=== PATIENT | male | born 1940 | race Caucasian/White ===

== ENCOUNTER 2016-11-10 03:40 | Emergency (ER) | payer OTHER, MEDICARE ==
--- NOTE | 2016-11-10 04:03 | EDM.PDOC ---
ED HPI GENERAL MEDICAL PROBLEM - General Stated Complaint: [facility] Time Seen by Provider: 11/10/16 03:58 Source of Information: Reports: EMS, Family (, son), RN Notes Reviewed History Limitations: Reports: Other (Unresponsive) - History of Present Illness INITIAL COMMENTS - FREE TEXT/NARRATIVE: The patient and his family are visiting from [place]. According to the patient's and EMS, the patient complained of a headache all day yesterday, 11/09/2016, but was doing well by the time he went to bed at 23 :30. The states that she woke to the sound of the patient falling onto the floor, face down. She states that he was not breathing. The patient's son started chest compressions, and EMS was called. The police arrived first, and they believed that he had a pulse, therefore chest compressions were stopped. When EMS arrived, they found the patient have a blood pressure 146/110 with a respiratory rate of 6. SpO2 was in the 90's. Blood glucose was 164. They assisted his breathing en route. Upon arrival to the ED, the patient remained hemodynamically stable, but unresponsive, even to noxious stimuli. The patient was therefore intubated for airway protection, following a propofol 40 mg IVP x 1. The patient's states that the patient had an intracranial hemorrhage approximately 2010, requiring craniotomy. At the time, the patient was on Coumadin. This was discontinued, and he has not been on an anticoagulant since. The patient also has a history of CAD with an ME approximately 2008, receiving 2 coronary stents. The patient developed paroxysmal atrial fibrillation following his ME. The patient has had a seizure disorder since 1986, for which he takes Keppra twice a day. He has not missed any doses recently. - Related Data Allergies Allergy/AdvReac Type Severity Reaction Status Date / Time Unable to Assess Allergy Unverified 11/10/16 05:32 Past Medical History Cardiovascular History: Reports: Afib (paroxysmal), CAD, High Cholesterol, Hypertension, ME (around 2008) Respiratory History: Reports: COPD (on 2L O2 continuously) Neurological History: Reports: Seizure (since approximately 1986), Other (See Below) (Intracranial hemorrhage approx 2010) Psychiatric History: Reports: Anxiety, Depression, PTSD Endocrine/Metabolic History: Reports: Hypothyroidism - Past Surgical History HEENT Surgical History: Reports: Cataract Surgery, Tonsillectomy Cardiovascular Surgical History: Reports: Coronary Artery Stent (x 2) Neurological Surgical History: Reports: Other (See Below) (Craniotomy for intracranial hemorrhage approximately 2010) Social & Family History - Tobacco Use Smoking Status *Q: Former Smoker Years of Tobacco use: 24 Packs/Tins Daily: 1.5 Month Tobacco Last Used: Quit 1982 - Alcohol Use Alcohol Use History: No - Recreational Drug Use Recreational Drug Use: No - Living Situation & Occupation Living situation: Reports: , with Spouse Occupation: Retired ED ROS GENERAL - Review of Systems Review Of Systems: See Below Constitutional: Reports: No Symptoms HEENT: Reports: No Symptoms Respiratory: Reports: No Symptoms Cardiovascular: Reports: No Symptoms Endocrine: Reports: No Symptoms GI/Abdominal: Reports: No Symptoms : Reports: No Symptoms Musculoskeletal: Reports: No Symptoms Skin: Reports: No Symptoms Neurological: Reports: Headache (11/09/16) Psychiatric: Reports: No Symptoms Hematologic/Lymphatic: Reports: No Symptoms Immunologic: Reports: No Symptoms - Physical Exam Exam: See Below Exam Limited By: Other (Unresponsive) General Appearance: WD/WN Eye Exam: Bilateral Eye: Normal Inspection Ears: Normal External Exam Nose: Normal Inspection, No Blood Throat/Mouth: Normal Inspection, Normal Lips Head Exam: Atraumatic, Normocephalic Neck: Normal Inspection, Full Range of Motion Respiratory/Chest: No Respiratory Distress, Lungs Clear, No Accessory Muscle Use , Decreased Breath Sounds. No: Crackles, Rhonchi, Wheezing Cardiovascular: Normal Peripheral Pulses, No Edema, No Gallop, No JVD, No Murmur , No Rub, Irregularly Irregular GI/Abdominal: Normal Bowel Sounds, Soft, No Organomegaly, No Distention, No Abnormal Bruit, No Mass (Male) Exam: Deferred Rectal (Males) Exam: Deferred Neuro Exam (Abbreviated): Other (Unresponsive to noxious stimuli) Extremities: Normal Inspection, Normal Range of Motion, No Pedal Edema, Normal Capillary Refill Skin Exam: Warm, Dry, Intact, Normal Color, No Rash Endotracheal Intubation - Endotracheal Intubation Time of Intubation: 03:54 ET Intubation Indication: Airway Protection Preparation: Suction, Balloon Tested, BVM Set Up, Difficult Airway Equip Pre-Oxygenation: Assisted with BVM, 100% FiO2 Anesthesia Meds: Propofol Placement: Orotracheal, Cuffed, Uncomplicated Placement Cords Visualized: Yes, Grade 1 ETT Size In mm: 8.0 Number of Attempts: 1 Confirmed By: CO2 Indicator, Bilateral Breath Sounds, Chest Xray Tube Secured By: By Provider EKG INTERPRETATION EKG Date: 11/10/16 Time: 04:56 Rhythm: A-Fib Rate (Beats/Min): 70 [place]: LAD-Left [place] Deviation P-Wave: Absent QRS: Wide ST-T: Normal QT: Normal Comparison: NA - No Prior EKG Course - Orders/Labs/Meds Orders: Active Orders 24 hr Category Date Time Status EKG Documentation Completion [RC] STAT Care 11/10/16 03:59 Active RT Ventilator, Adult [RC] ASDIRECTED Care 11/10/16 05:34 Active Ang Chest [CT] Stat Exams 11/10/16 04:30 Stop Req Cervical Spine wo Cont [CT] Stat Exams 11/10/16 03:59 Taken Chest 1V Frontal [CR] Stat Exams 11/10/16 03:59 Ordered Head wo Cont [CT] Stat Exams 11/10/16 03:59 Taken BLOOD GAS ARTERIAL [BG] Stat Lab 11/10/16 03:59 Results Labs: Laboratory Tests 11/10/16 11/10/16 11/10/16 Range/Units 03:50 03:50 03:50 WBC 11.82 H (4.23-9.07) K/mm3 RBC 3.96 L (4.63-6.08) M/mm3 Hgb 12.8 L (13.7-17.5) gm/L Hct 38.6 L (40.1-51.0) % MCV 97.5 H (79.0-92.2) fl MCH 32.3 H (25.7-32.2) pg MCHC 33.2 (32.2-35.5) g/dl RDW Std Deviation 44.4 H (35.1-43.9) fL Plt Count 187 (163-337) K/mm3 MPV 9.5 (9.4-12.3) fl Neutrophils % (Manual) 39 L (40-60) % Band Neutrophils % 3 (0-10) % Lymphocytes % (Manual) 44 H (20-40) % Atypical Lymphs % 2 % Monocytes % (Manual) 8 (2-10) % Eosinophils % (Manual) 3 (0.8-7.0) % Basophils % (Manual) 0 L (0.2-1.2) Metamyelocytes % 1 Platelet Estimate Adequate Plt Morphology Comment Normal Polychromasia 1+ slight Ovalocytes Few RBC Morph Comment Not Reportable PT 11.4 (8.0-13.0) SECONDS INR 1.04 APTT 26 (22-36) SECONDS D-Dimer, Quantitative 8.15 H (0.19-0.59) mg/L Puncture Site ABG pH (7.35-7.45) ABG pCO2 (35.0-45.0) mmHg ABG pO2 (80.0-100.0) mmHg ABG HCO3 (22.0-26.0) meq/L ABG O2 Saturation (96.0-97.0) % ABG Base Excess (-2-2.0) A-a Gradient mmHg O2 Delivery Device FiO2 (21.00-100.00) % Tidal Volume cc PEEP cmH20 Pressure Support cmH2O Sodium 139 (136-145) mEq/L Potassium 4.4 (3.5-5.1) mEq/L Chloride 102 (98-107) mEq/L Carbon Dioxide 33 H (21-32) mEq/L Anion Gap 8.4 (5-15) BUN 16 (7-18) mg/dL Creatinine 1.0 (0.7-1.3) mg/dL Est Cr Clr Drug Dosing TNP Estimated GFR (MDRD) > 60 (>60) mL/min BUN/Creatinine Ratio 16.0 (14-18) Glucose 168 H (83-115) mg/dL Calcium 8.9 (8.5-10.1) mg/dL Total Bilirubin 0.5 (0.2-1.0) mg/dL AST 93 H (15-37) U/L ALT 72 H (16-63) U/L Alkaline Phosphatase 76 (46-116) U/L Troponin I 0.037 (0.00-0.056) ng/mL Total Protein 7.3 (6.4-8.2) g/dl Albumin 3.5 (3.4-5.0) g/dl Globulin 3.8 gm/dL Albumin/Globulin Ratio 0.9 L (1-2) Salicylates (2.8-20) mg/dL Urine Opiates Screen (NEGATIVE) Ur Buprenorphine Scrn (NEGATIVE) Ur Oxycodone Screen (NEGATIVE) Urine Methadone Screen (NEGATIVE) Ur Propoxyphene Screen (NEGATIVE) Acetaminophen 4 L (10-30) ug/mL Ur Barbiturates Screen (NEGATIVE) Ur Tricyclics Screen (NEGATIVE) Ur Phencyclidine Scrn (NEGATIVE) Ur Amphetamine Screen (NEGATIVE) U Methamphetamines Scrn (NEGATIVE) U Benzodiazepines Scrn (NEGATIVE) U Cocaine Metab Screen (NEGATIVE) U Marijuana (THC) Screen (NEGATIVE) Ethyl Alcohol 0.00 (0.00) gm% 11/10/16 11/10/16 11/10/16 Range/Units 03:50 03:59 04:50 WBC (4.23-9.07) K/mm3 RBC (4.63-6.08) M/mm3 Hgb (13.7-17.5) gm/L Hct (40.1-51.0) % MCV (79.0-92.2) fl MCH (25.7-32.2) pg MCHC (32.2-35.5) g/dl RDW Std Deviation (35.1-43.9) fL Plt Count (163-337) K/mm3 MPV (9.4-12.3) fl Neutrophils % (Manual) (40-60) % Band Neutrophils % (0-10) % Lymphocytes % (Manual) (20-40) % Atypical Lymphs % % Monocytes % (Manual) (2-10) % Eosinophils % (Manual) (0.8-7.0) % Basophils % (Manual) (0.2-1.2) Metamyelocytes % Platelet Estimate Plt Morphology Comment Polychromasia Ovalocytes RBC Morph Comment PT (8.0-13.0) SECONDS INR APTT (22-36) SECONDS D-Dimer, Quantitative (0.19-0.59) mg/L Puncture Site Rt radial ABG pH 7.28 L (7.35-7.45) ABG pCO2 67.6 H (35.0-45.0) mmHg ABG pO2 106.0 H (80.0-100.0) mmHg ABG HCO3 31.0 H (22.0-26.0) meq/L ABG O2 Saturation 98.1 H (96.0-97.0) % ABG Base Excess 3.1 H (-2-2.0) A-a Gradient 161 mmHg O2 Delivery Device Ventilator FiO2 55.00 (21.00-100.00) % Tidal Volume 400.0 cc PEEP 5.0 cmH20 Pressure Support 0.0 cmH2O Sodium (136-145) mEq/L Potassium (3.5-5.1) mEq/L Chloride (98-107) mEq/L Carbon Dioxide (21-32) mEq/L Anion Gap (5-15) BUN (7-18) mg/dL Creatinine (0.7-1.3) mg/dL Est Cr Clr Drug Dosing Estimated GFR (MDRD) (>60) mL/min BUN/Creatinine Ratio (14-18) Glucose (83-115) mg/dL Calcium (8.5-10.1) mg/dL Total Bilirubin (0.2-1.0) mg/dL AST (15-37) U/L ALT (16-63) U/L Alkaline Phosphatase (46-116) U/L Troponin I (0.00-0.056) ng/mL Total Protein (6.4-8.2) g/dl Albumin (3.4-5.0) g/dl Globulin gm/dL Albumin/Globulin Ratio (1-2) Salicylates 0.3 L (2.8-20) mg/dL Urine Opiates Screen Negative (NEGATIVE) Ur Buprenorphine Scrn Negative (NEGATIVE) Ur Oxycodone Screen Negative (NEGATIVE) Urine Methadone Screen Negative (NEGATIVE) Ur Propoxyphene Screen Negative (NEGATIVE) Acetaminophen (10-30) ug/mL Ur Barbiturates Screen Negative (NEGATIVE) Ur Tricyclics Screen Negative (NEGATIVE) Ur Phencyclidine Scrn Negative (NEGATIVE) Ur Amphetamine Screen Negative (NEGATIVE) U Methamphetamines Scrn Negative (NEGATIVE) U Benzodiazepines Scrn Negative (NEGATIVE) U Cocaine Metab Screen Negative (NEGATIVE) U Marijuana (THC) Screen Negative (NEGATIVE) Ethyl Alcohol (0.00) gm% Meds: Medications Discontinued Medications Generic Name Dose Route Start Last Admin Trade Name Freq PRN Reason Stop Dose Admin Enoxaparin Sodium 85 mg 11/10/16 04:37 Lovenox SUBCUT 11/10/16 04:38 ONETIME STA Propofol Confirm 11/10/16 04:22 Diprivan 100 Ml Administered 11/10/16 04:23 Dose 100 mls @ as directed .ROUTE .STK-MED ONE - Re-Assessments/Exams Free Text/Narrative Re-Assessment/Exam: 11/10/16 04:32 CT of the head without contrast is read by [facility] as "Limited examination. No obvious acute intracranial findings." CT of the cervical spine without contrast is read by [facility] as "Limited examination. No obvious acute findings." The patient's D-dimer has returned as substantially elevated at 8.15. I have ordered a CT angiogram of the chest to evaluate for PE, and as soon as we have a weight on the patient, I will order Lovenox at 1 mg/kg SQ. 11/10/16 04:47 The ABG while on the ventilator at A/C 14/.400/5/.55 indicates an acute-on- chronic respiratory acidosis. His tidal volume is currently 5.6 L/min. I have increased his respiratory rate is 16 and his TV to 0.600 in order to increase his minute ventilation to 9.46 L/min, which should decrease his pCO2 to 40. 11/10/16 05:16 Notified that as the patient was being prepared to go to CT for the angiogram of his chest at 05:00, he suddenly developed bradycardia 35 bpm with no pulse. Chest compressions were started, the patient was removed from the ventilator, and bagged via his ET tube. Dopamine was ordered at 20 mcg/kg/min. After several minutes of chest compressions, compressions were held and a pulse was checked. He was still pulseless and bradycardic, therefore chest compressions were resumed and epinephrine 1 mg ordered. After 2 additional minutes of chest compressions, compressions were held and his pulse checked. He had a strong right femoral pulse. Blood pressure was checked and found to be 190/75. The dopamine was ordered to be reduced to 10 mcg/kg/min. As the patient is already being treated for a PE with Lovenox, I will cancel the CT angiogram of the chest. 11/10/16 05:20 Repeat ECG 11/10/2016 at 05:15 demonstrates atrial fibrillation at 98 bpm. Numerous PVCs are present. There is an intraventricular conduction delay. 11/10/16 05:23 Portable chest radiograph appears to be grossly normal. Cardiac silhouette is within normal limits. No pulmonary vascular congestion. No pleural effusions. No focal infiltrate. No pneumothorax. The tip of the ETT appears to be approximately 3 cm above the keira. The tip of the OGT is in the stomach via the esophagus. Formal read per the Radiologist pending. 11/10/16 05:[address] Hernadez, Emergency Physician at [facility] at 05: 40 MT. She accepts the patient for transfer. As the cause of the patient's obtundation is not known, I'm concerned about subclinical seizure. I will treat with 1 g Keppra IV. Departure - Departure Time of Disposition: 06:01 Disposition: DC/Tfer to Acute Hospital 02 Condition: Serious Clinical Impression: Unresponsive state, Bradycardia - Discharge Information - My Orders Last 24 Hours: My Active Orders 11/10/16 03:59 EKG Documentation Completion [RC] STAT Cervical Spine wo Cont [CT] Stat Chest 1V Frontal [CR] Stat Head wo Cont [CT] Stat BLOOD GAS ARTERIAL [BG] Stat 11/10/16 04:30 Ang Chest [CT] Stat 11/10/16 05:34 RT Ventilator, Adult [RC] ASDIRECTED - Assessment/Plan Last 24 Hours: My Active Orders 11/10/16 03:59 EKG Documentation Completion [RC] STAT Cervical Spine wo Cont [CT] Stat Chest 1V Frontal [CR] Stat Head wo Cont [CT] Stat BLOOD GAS ARTERIAL [BG] Stat 11/10/16 04:30 Ang Chest [CT] Stat 11/10/16 05:34 RT Ventilator, Adult [RC] ASDIRECTED
[2016-11-10 04:22] LABS: ACETAMINOPHEN 4 ug/mL (10-30)
[2016-11-10] MEDS ORDERED: Enoxaparin 100 MG/1 ML Syringe SUBCUT STA (04:37)
[2016-11-10] MEDS ORDERED: levETIRAcetam 1,000 MG in Sodium Chloride 0.9% 100 ML IV STA (05:49)
[2016-11-10 05:56] VITALS: BP 229/177
--- NOTE | 2016-11-10 05:56 | PCM.SN ---
- Free Text/Narrative Note: Code Jose A 8-10-17 Anesthesia start-0513 Anesthesia end- 0540 Called from ED staff at 0502 regarding a code blue in trauma 2. Upon arrival the patient was intubated. Systolic bp in the 150's, spO2 98%, and HR in the 80 's (appeared to be a fib with frequent PVC's). The patient was connected to the ventilator. An end tidal CO2 sensor was connected. Appropriate ventilator settings made accordingly. The patient started to get restless at approximately 0530 so 3mg of versed was given and 50mg of rocuronium was given. Patient remained stable and when I left at 0540 the patients bp was in the 120 's systolically, HR in the 80's, SpO2 95% on 50% fiO2, and ETCO2 was 35mmHg. Slevin Antunez CRNA
[2016-11-10] MEDS ORDERED: Propofol 200 MG/20 ML SDV IVPUSH ONE (06:57)
[2016-11-10] MEDS ORDERED: Midazolam 1 MG/ML 5 ML SDV ONE (07:00)
[2016-11-10] MEDS ORDERED: Rocuronium 50 MG/5 ML Vial ONE (07:00)
[2016-11-10] MEDS ORDERED: EPINEPHrine 1:10,000 1 MG/10 ML Syringe ONE (07:00)
[2016-11-10] MEDS ORDERED: DOPamine/Dextrose 5%-Water 400 MG/250 ML BAG IV SCH (07:15)
--- NOTE | 2016-11-10 11:07 | CR ---
Chest: Frontal view of the chest was obtained. Comparison: No previous study. Heart size and mediastinum are within normal limits for technique. Lungs are clear with no acute infiltrates. Endotracheal tube is seen with tip at the lower level of the clavicles. Nasogastric tube is seen with tip lying slightly past the gastroesophageal junction into the stomach. Bony structures are grossly intact. Impression: 1. Tip of endotracheal tube at the lower level of the clavicles. 2. Tip of nasogastric tube slightly past the gastroesophageal junction within the stomach. 3. Nothing acute is seen within the chest. Diagnostic code #3
--- NOTE | 2016-11-10 11:07 | CT ---
CT cervical spine Technique: Multiple axial sections were obtained from above C1 inferiorly to the lower T3 level. Reconstructed sagittal and coronal images were reviewed. Findings: Significant motion artifact is seen diminishing details. Scattered degenerative change is noted with disc space narrowing, anterior and posterior osteophytes. No gross fracture is seen. Endotracheal tube is present. Impression: 1. Significant motion artifact. Degenerative change partially seen. Nothing acute is definitely appreciated. 2. Endotracheal tube present within the trachea. Diagnostic code #3 I agree with preliminary report issued by [facility] ([facility] report finalized on 11/10/16, 5:22 AM Central Time)
--- NOTE | 2016-11-10 11:07 | CT ---
Head CT Technique: Multiple axial sections through the brain were obtained. Intravenous contrast was not utilized. Comparison: No previous intracranial imaging. Prominent motion artifact is seen. This significantly limits details of the exam. Diminished density noted within the periventricular white matter compatible with small vessel ischemic demyelination change. Previous right-sided craniotomy noted with encephalomalacia being seen within the right temporal lobe. No definite intracranial hemorrhage is seen. No midline shift or mass effect is identified. No acute calvarial abnormality is identified. Mucosal thickening seen within portions of the ethmoid sinus. Impression: 1. Ethmoid sinus disease most likely chronic. 2. Significant motion artifact which limits details, nothing acute is definitely appreciated. 3. Other chronic appearing findings as described above. Diagnostic code #2 I agree with preliminary report issued by [facility] ([facility] report finalized on 11/10/16, 5:20 AM Central Time)
== END 2016-11-10 06:45 ==
LOC: JD.ED 03:40
DX: R00.1 Bradycardia, unspecified (principal); R40.1 Stupor; I10 Essential (primary) hypertension; I25.2 Old myocardial infarction; I48.91 Unspecified atrial fibrillation; E78.00 Pure hypercholesterolemia, unspecified; J44.9 Chronic obstructive pulmonary disease, unspecified; F32.9 Major depressive disorder, single episode, unspecified; E03.9 Hypothyroidism, unspecified; Z98.49 Cataract extraction status, unspecified eye; Z95.5 Presence of coronary angioplasty implant and graft; Z87.891 Personal history of nicotine dependence
CPT/HCPCS: 31500; 36415; 36600; 51702; 70450; 71010; 72125; 80053; 80306; 82803; 84484; 85025; 85379; 85610; 85730; 92950; 93005; 96365; 96366; 96368; 96372; 96375; 96376; 99291; 99292; G0480; J0171; J1265; J1650; J2250; 99285; J2704; J3490